=== PATIENT | female | born 1995 | race Caucasian/White ===

== ENCOUNTER 2021-10-05 17:49 | Emergency (ER) | payer OTHER ==
[~2021-10-05] VITALS: Ht 154.9 cm; Wt 74.8 kg
[2021-10-05 17:51] VITALS: BP 113/61
== END 2021-10-05 19:58 | disposition home or self-care (01) ==
LOC: ER 17:49
DX: S52.501A Unspecified fracture of the lower end of right radius, initial encounter for closed fracture (principal); Z90.89 Acquired absence of other organs; V00.131A Fall from skateboard, initial encounter; Y93.89 Activity, other specified; Y92.89 Other specified places as the place of occurrence of the external cause; Y99.8 Other external cause status